=== PATIENT | female | born 1960 | race Two or more races ===

== ENCOUNTER 2023-06-14 18:53 | Inpatient (IN) | payer MEDICAID, OTHER ==
[~2023-06-14] VITALS: Ht 165.1 cm; Wt 102.0 kg
[2023-06-14 19:20] VITALS: PULSE 129; RESP 30; O2SAT 96
[2023-06-14 19:36] LABS: Basophils # (auto) 0 10 ^3/uL (0-0.2); Eosinophils # (auto) 0 10 ^3/uL (0-0.8); Hematocrit 35.5 % (36.0-46.0); Lymphocytes # (auto) 0.8 10 ^3/uL (0.4-5.4); Nucleated Red Blood Cells % 0.1 %
[2023-06-14 19:38] LABS: Basophils % (auto) 0.1 % (0.0-2.0); Eosinophils % (auto) 0.2 % (0.0-7.0); Hemoglobin 11.7 g/dL (12.2-16.2); Lymphocytes % (auto) 8.3 % (10.0-50.0); Mean Corpuscular Hemoglobin 28.9 pg (28.0-32.0); Mean Corpuscular Hgb Conc. 33.1 g/dL (32.0-36.0); Mean Corpuscular Volume 87.4 fL (80.0-100.0); Monocytes % (auto) 9.8 % (0.0-12.0); Neutrophils # (auto) 7.9 10 ^3/uL (1.6-8.6); Neutrophils % (auto) 81.6 % (37.0-80.0); Red Blood Cells 4.06 10^6/uL (4.0-5.20); Red Cell Distribution Width 13.8 % (11.8-14.3); White Blood Cell 9.7 10^3/uL (4.4-10.8)
[2023-06-14] MEDS ORDERED: DexAMETHasone SOD PHOS 10MG/1ML VIAL INJ IV ONE (19:45)
[2023-06-14] MEDS ORDERED: KETOROLAC TROMETH 30 MG/ML 1ML VIAL IV ONE (19:45)
[2023-06-14 19:54] LABS: INR 1.18 (0.9-1.15); Partial Thromboplastin Time 30.8 SEC (24.5-34.5)
[2023-06-14 20:20] LABS: Albumin 2.8 g/dL (3.4-5.0); BUN/Creatinine Ratio 16.7 (10.0-20.0); Calcium 9.3 mg/dL (8.5-10.1); Magnesium 2.3 mg/dL (1.6-2.6); Potassium 3.9 mmol/L (3.5-5.1)
[2023-06-14 20:23] LABS: Bilirubin, Total 0.7 mg/dL (0.2-1.0); Total Protein 7.8 g/dL (6.4-8.2)
[2023-06-14] MEDS ORDERED: ONDANSETRON HCL 4 MG/2 ML VIAL IV PRN (21:30)
[2023-06-14] MEDS ORDERED: IBUPROFEN 600 MG TAB PO PRN (21:30)
[2023-06-14] MEDS ORDERED: DOCUSATE SOD 100 MG CAP PO PRN (21:30)
[2023-06-14 21:45] VITALS: BP 130/77; PULSE 134; RESP 20; TEMP 100.1; O2SAT 95
[2023-06-14] MEDS: SODIUM CHLOR 0.9% PF (SALINE LOCK) 10ML VIAL/SYR IV SCH (21:48)
[2023-06-14] MEDS ORDERED: NITROGLYCERIN 0.4 MG SL TAB SL PRN (22:45)
[2023-06-14] MEDS ORDERED: MORPHINE SULFATE INJ 2 MG/ml SYRG IV PRN (22:45)
[2023-06-15] VITALS (9 sets, daily range): BP systolic 110–137; BP diastolic 70–83; PULSE 91–123; RESP 16–22; TEMP 97.2–98.4; O2SAT 95–100
[2023-06-15] MEDS: DOXYCYCLINE 100MG/250ML 250 ML IV SCH ×3 (00:20→23:29)
[2023-06-15 04:48] LABS: Basophils # (auto) 0 10 ^3/uL (0-0.2); Basophils % (auto) 0.1 % (0.0-2.0); Eosinophils # (auto) 0 10 ^3/uL (0-0.8); Lymphocytes # (auto) 0.3 10 ^3/uL (0.4-5.4)
[2023-06-15 04:50] LABS: Eosinophils % (auto) 0.1 % (0.0-7.0); Hematocrit 31.1 % (36.0-46.0); Hemoglobin 10.3 g/dL (12.2-16.2); Lymphocytes % (auto) 2.2 % (10.0-50.0); Mean Corpuscular Hemoglobin 29.2 pg (28.0-32.0); Mean Corpuscular Hgb Conc. 33.3 g/dL (32.0-36.0); Mean Corpuscular Volume 87.8 fL (80.0-100.0); Monocytes # (auto) 0.5 10 ^3/uL (0-1.3); Monocytes % (auto) 4.3 % (0.0-12.0); Neutrophils # (auto) 10.9 10 ^3/uL (1.6-8.6); Neutrophils % (auto) 93.3 % (37.0-80.0); Red Blood Cells 3.54 10^6/uL (4.0-5.20); Red Cell Distribution Width 13.9 % (11.8-14.3); White Blood Cell 11.7 10^3/uL (4.4-10.8)
[2023-06-15 04:56] LABS: BUN/Creatinine Ratio 20.5 (10.0-20.0); Potassium 3.6 mmol/L (3.5-5.1)
[2023-06-15 05:04] LABS: Bilirubin, Total 0.6 mg/dL (0.2-1.0); Total Protein 7.9 g/dL (6.4-8.2)
[2023-06-15 05:32] LABS: Urine Bacteria FEW /hpf (None Seen); Urine Blood Negative /uL (Negative); Urine Hyaline Cast MOD /lpf (0 - 2); Urine Mucus FEW (None Seen); Urine WBC 10 /hpf (0 - 5)
[2023-06-15 06:07] LABS: Albumin 2.3 g/dL (3.4-5.0)
[2023-06-15] MEDS: SODIUM CHLOR 0.9% PF (SALINE LOCK) 10ML VIAL/SYR IV SCH ×3 (06:18→21:24)
[2023-06-15] MEDS ORDERED: DEXTROSE (50%) 50ML SYRG IV PRN (06:45)
[2023-06-15] MEDS: InsuLIN REG 1unit/0.01ml Soln (100units/ml) SC SCH ×4 (06:55→21:24)
[2023-06-15] MEDS: ACCU-CHEK COMFORT CURVE STRIP VI SCH ×4 (06:55→21:25)
[2023-06-15] MEDS: HYDROcodone-ACET 5/325MG TAB PO PRN ×2 (09:58→15:05)
[2023-06-15] MEDS: DexAMETHasone SOD PHOS 10MG/1ML VIAL INJ IV SCH (11:04)
[2023-06-15 13:19] LABS: HDL Cholesterol 33 mg/dL (40-59); LDL Cholesterol 63 mg/dL (< 100); Triglycerides 67 mg/dL (< 150)
[2023-06-15 15:06] LABS: Cholesterol 131 mg/dL (< 200)
[2023-06-15] MEDS: IPRATROPIUM BROM 0.5 MG/2.5ML INH SOL NEB PRN (22:01)
[2023-06-15] MEDS: ALBUTEROL SULF 2.5 MG/0.5ML(0.5%) NEB SOLN NEB PRN (22:01)
[2023-06-16] VITALS (9 sets, daily range): BP systolic 115–137; BP diastolic 65–83; PULSE 68–118; RESP 14–19; TEMP 97–98.3; O2SAT 94–100
[2023-06-16] MEDS: HYDROcodone-ACET 5/325MG TAB PO PRN ×3 (00:08→23:39)
[2023-06-16] MEDS: SODIUM CHLOR 0.9% PF (SALINE LOCK) 10ML VIAL/SYR IV SCH ×3 (05:38→22:15)
[2023-06-16] MEDS: ACCU-CHEK COMFORT CURVE STRIP VI SCH ×4 (05:38→22:15)
[2023-06-16] MEDS: InsuLIN REG 1unit/0.01ml Soln (100units/ml) SC SCH ×4 (05:39→22:00)
[2023-06-16] MEDS: DexAMETHasone SOD PHOS 10MG/1ML VIAL INJ IV SCH (08:40)
[2023-06-16 09:24] LABS: Hepatitis B Surface Antibody Positive (Negative)
[2023-06-16 09:53] LABS: Hepatitis A Total Antibody Positive (Negative)
[2023-06-16 10:22] LABS: Hepatitis C Antibody Negative (Negative)
[2023-06-16] MEDS ORDERED: DAPA1TAB4 PO (10:28)
[2023-06-16] MEDS: DOXYCYCLINE 100MG/250ML 250 ML IV SCH ×2 (11:01→23:41)
[2023-06-16] MEDS: IPRATROPIUM BROM 0.5 MG/2.5ML INH SOL NEB PRN ×2 (14:36→20:00)
[2023-06-16] MEDS: ALBUTEROL SULF 2.5 MG/0.5ML(0.5%) NEB SOLN NEB PRN ×2 (14:36→20:00)
[2023-06-16] MEDS: methylPREDNISolone SOD SUCC 40 MG/ML VL IV SCH (22:16)
[2023-06-17 05:00] VITALS: BP 118/70; PULSE 85; RESP 16; TEMP 98; O2SAT 95
[2023-06-17] MEDS: InsuLIN REG 1unit/0.01ml Soln (100units/ml) SC SCH ×2 (06:33→11:30)
[2023-06-17] MEDS: ACCU-CHEK COMFORT CURVE STRIP VI SCH ×2 (06:33→11:30)
[2023-06-17] MEDS: SODIUM CHLOR 0.9% PF (SALINE LOCK) 10ML VIAL/SYR IV SCH ×2 (06:33→12:54)
[2023-06-17 08:00] VITALS: BP 133/79; PULSE 114; PULSE 95; RESP 20; TEMP 97.8; O2SAT 98
[2023-06-17 09:00] VITALS: BP 121/70; PULSE 108; RESP 20; TEMP 97.6; O2SAT 98
[2023-06-17] MEDS: methylPREDNISolone SOD SUCC 40 MG/ML VL IV SCH (10:11)
[2023-06-17] MEDS: DOXYCYCLINE 100MG/250ML 250 ML IV SCH (11:45)
[2023-06-17] MEDS ORDERED: DOXY1CAP57 PO (12:33)
[2023-06-17 12:58] VITALS: BP 133/79; PULSE 95; RESP 20; TEMP 97.8; O2SAT 94
[2023-06-17 14:38] VITALS: BP 121/70; PULSE 108; RESP 20; TEMP 97.6; O2SAT 98
== END 2023-06-17 15:30 | disposition home or self-care (01) | DRG 314 ==
LOC: ER 18:53 → TELE 22:38 → TELE-CENTR 06-15 14:00
PROVIDERS: ADMIT Family Medicine; ATTEND Family Medicine
DX: I31.39 Other pericardial effusion (noninflammatory) (principal); J18.9 Pneumonia, unspecified organism; J96.01 Acute respiratory failure with hypoxia; J98.11 Atelectasis; J90 Pleural effusion, not elsewhere classified; E11.9 Type 2 diabetes mellitus without complications; J45.909 Unspecified asthma, uncomplicated; K75.4 Autoimmune hepatitis; Z20.822 Contact with and (suspected) exposure to COVID-19; E66.01 Morbid (severe) obesity due to excess calories; R74.01 Elevation of levels of liver transaminase levels; R79.89 Other specified abnormal findings of blood chemistry; Z68.35 Body mass index [BMI] 35.0-35.9, adult; Z88.2 Allergy status to sulfonamides; Z91.041 Radiographic dye allergy status
CPT/HCPCS: 36415; 36600; 71250; 76705; 80053; 80061; 81001; 82805; 82962; 83036; 83516; 83605; 83735; 83880; 84443; 84484; 85025; 85610; 85730; 86225; 86235; 86704; 86706; 86708; 86803; 87040; 87081; 87340; 87426; 93005; 93306; 94640; G0378; J1100; J1885; J3490

== ENCOUNTER 2023-06-22 18:22 | Inpatient (IN) | payer OTHER ==
[~2023-06-22] VITALS: Ht 165.1 cm; Wt 94.0 kg
[~2023-06-22 18:22] MED LIST: DAPA1TAB4 PO; DOXY1CAP57 PO
[2023-06-22] MEDS ORDERED: ACETAMINOPHEN 325 MG TAB PO STA (19:04)
[2023-06-22 19:09] LABS: Basophils # (auto) 0 10 ^3/uL (0-0.2); Eosinophils # (auto) 0 10 ^3/uL (0-0.8); Eosinophils % (auto) 0.2 % (0.0-7.0); Monocytes # (auto) 0.6 10 ^3/uL (0-1.3)
[2023-06-22 19:11] LABS: Basophils % (auto) 0.2 % (0.0-2.0); Hematocrit 38.9 % (36.0-46.0); Hemoglobin 12.7 g/dL (12.2-16.2); Lymphocytes # (auto) 0.7 10 ^3/uL (0.4-5.4); Lymphocytes % (auto) 7.4 % (10.0-50.0); Mean Corpuscular Hemoglobin 28.4 pg (28.0-32.0); Mean Corpuscular Hgb Conc. 32.7 g/dL (32.0-36.0); Mean Corpuscular Volume 86.6 fL (80.0-100.0); Monocytes % (auto) 6.3 % (0.0-12.0); Neutrophils # (auto) 8.3 10 ^3/uL (1.6-8.6); Neutrophils % (auto) 85.9 % (37.0-80.0); Red Blood Cells 4.49 10^6/uL (4.0-5.20); Red Cell Distribution Width 13.9 % (11.8-14.3); White Blood Cell 9.7 10^3/uL (4.4-10.8)
[2023-06-22] MEDS ORDERED: ALBUTEROL SULF 2.5 MG/0.5ML(0.5%) NEB SOLN NEB ONE (19:15)
[2023-06-22] MEDS ORDERED: ONDANSETRON HCL 4 MG/2 ML VIAL IV ONE (19:15)
[2023-06-22] MEDS ORDERED: VANCOMYCIN PER PHARMACY 1,000 MG IV SCH (19:15)
[2023-06-22] MEDS ORDERED: SODIUM CHLORIDE 0.9% 2,950 ML IV ONE (19:15)
[2023-06-22] MEDS ORDERED: fentaNYL CITRATE 100 MCG/2 ML VL IV ONE (19:15)
[2023-06-22] MEDS ORDERED: IPRATROPIUM BROM 0.5 MG/2.5ML INH SOL NEB ONE (19:15)
[2023-06-22 19:24] LABS: INR 1.12 (0.9-1.15); Partial Thromboplastin Time 28.5 SEC (24.5-34.5); Prothrombin Time 11.7 sec (9.3-11.8)
[2023-06-22 19:32] LABS: Calcium 8.8 mg/dL (8.5-10.1)
[2023-06-22 19:36] LABS: BUN/Creatinine Ratio 19.2 (10.0-20.0); Bilirubin, Total 0.5 mg/dL (0.2-1.0); Total Protein 7.5 g/dL (6.4-8.2)
[2023-06-22] MEDS ORDERED: VANCOMYCIN 1GM/250ML 250 ML IV ONE (20:00)
[2023-06-22 20:05] VITALS: O2SAT 100
[2023-06-22 20:36] LABS: Blood Alcohol < 3.0 mg/dL (<10)
[2023-06-22] MEDS: DexAMETHasone INJECTION 10 MG in D5W 5% 50 ML IV SCH (21:00)
[2023-06-22 21:07] LABS: Urine Bacteria NONE SEEN /hpf (None Seen); Urine Blood Negative /uL (Negative); Urine Clarity Clear (Clear); Urine Color Yellow (Yellow); Urine Hyaline Cast FEW /lpf (0 - 2); Urine Protein, UAD Negative (Negative); Urine Specific Gravity 1.035 (1.001-1.035); Urine Urobilinogen Normal (Negative); Urine WBC 2 /hpf (0 - 5); Urine pH 5.5 (5.0-8.0)
[2023-06-22 21:32] LABS: Alcohol, Urine < 3.0 mg/dL (0-10); Amphetamine Screen, Urine NEGATIVE (NEGATIVE); Barbiturate Scree,Urine NEGATIVE (NEGATIVE); Benzodiazephine Screen, Urine NEGATIVE (NEGATIVE); Cannabinoid Screen, Urine NEGATIVE (NEGATIVE); Cocaine Screen, Urine NEGATIVE (NEGATIVE); Opiate Scree,Urine NEGATIVE (NEGATIVE); Phencyclidine Screen, Urine NEGATIVE (NEGATIVE)
[2023-06-22] MEDS ORDERED: PIPERACILLIN-TAZOB 3.375GM 100 ML IV SCH (22:00)
[2023-06-22] MEDS ORDERED: ONDANSETRON HCL 4 MG/2 ML VIAL IV PRN (22:45)
[2023-06-22] MEDS ORDERED: AZITHROMYCIN 500MG/ 250ML 250 ML IV ONE (22:45)
[2023-06-22] MEDS ORDERED: ALBUTEROL SULF 2.5 MG/0.5ML(0.5%) NEB SOLN NEB PRN (22:45)
[2023-06-22] MEDS ORDERED: ACETAMINOPHEN 325 MG TAB PO PRN (22:45)
[2023-06-22] MEDS ORDERED: NITROGLYCERIN 0.4 MG SL TAB SL PRN (22:45)
[2023-06-22 23:02] VITALS: BP 115/67; PULSE 117; RESP 22; TEMP 99.8; O2SAT 97
[2023-06-22 23:15] VITALS: PULSE 106; RESP 33; O2SAT 97
[2023-06-23] MEDS ORDERED: DexAMETHasone INJECTION 10 MG in SODIUM CHL 3% 500 ML IV SCH ×2
[2023-06-23] MEDS ORDERED: ACETAMINOPHEN 325 MG TAB PO ONE (01:15)
[2023-06-23] MEDS: DexAMETHasone INJECTION 10 MG in D5W 5% 50 ML IV SCH ×4 (03:00→20:47)
[2023-06-23 05:43] LABS: Basophils # (auto) 0 10 ^3/uL (0-0.2); Basophils % (auto) 0.2 % (0.0-2.0); Eosinophils # (auto) 0 10 ^3/uL (0-0.8); Eosinophils % (auto) 0.2 % (0.0-7.0); Hematocrit 33.8 % (36.0-46.0); Hemoglobin 10.9 g/dL (12.2-16.2); Lymphocytes # (auto) 1.4 10 ^3/uL (0.4-5.4); Lymphocytes % (auto) 14.7 % (10.0-50.0); Mean Corpuscular Hemoglobin 28.7 pg (28.0-32.0); Mean Corpuscular Hgb Conc. 32.4 g/dL (32.0-36.0); Mean Corpuscular Volume 88.6 fL (80.0-100.0); Monocytes % (auto) 10.3 % (0.0-12.0); Neutrophils # (auto) 7.3 10 ^3/uL (1.6-8.6); Neutrophils % (auto) 74.6 % (37.0-80.0); Nucleated Red Blood Cells % 0.2 %; Red Blood Cells 3.81 10^6/uL (4.0-5.20); Red Cell Distribution Width 14.6 % (11.8-14.3); White Blood Cell 9.8 10^3/uL (4.4-10.8)
[2023-06-23 06:00] LABS: Albumin 2.2 g/dL (3.4-5.0); Calcium 8.2 mg/dL (8.5-10.1); Potassium 3.4 mmol/L (3.5-5.1)
[2023-06-23 06:04] LABS: Bilirubin, Total 0.6 mg/dL (0.2-1.0); Total Protein 6.6 g/dL (6.4-8.2)
[2023-06-23 07:40] VITALS: PULSE 108; RESP 15; O2SAT 98
[2023-06-23] MEDS: MORPHINE SULFATE INJ 2 MG/ml SYRG IV PRN ×2 (08:34→14:48)
[2023-06-23] MEDS: ENOXAPARIN SOD 40 MG/0.4 ML SYRINGE SC SCH (09:38)
[2023-06-23] MEDS: hydrOXYchloroQUINE SULFATE 200 MG TAB PO SCH ×2 (09:38→23:06)
[2023-06-23] MEDS: AZITHROMYCIN 500MG/ 250ML 250 ML IV SCH (09:38)
[2023-06-23] MEDS: ASPirin 81 mg TAB PO SCH (09:38)
[2023-06-23] MEDS ORDERED: FUROSEMIDE 20 MG TAB PO SCH (11:45)
[2023-06-23] MEDS ORDERED: POTASSIUM CHL 20 Meq TABLET PO ONE (11:45)
[2023-06-23] MEDS ORDERED: PANTOPRAZOLE 40 MG/10 ML VIAL INJ IV ONE (15:45)
[2023-06-23] MEDS ORDERED: cefTRIAXone 1GM/50ML D5W 50 ML IV ONE (15:45)
[2023-06-23] MEDS: MAALOX PLUS or MAALOX 30 ML PO PRN (17:01)
[2023-06-23 18:00] VITALS: O2SAT 93
[2023-06-23 19:42] VITALS: PULSE 122; RESP 42; O2SAT 95
[2023-06-23 19:53] VITALS: PULSE 118; RESP 38; O2SAT 100
[2023-06-23] MEDS ORDERED: DexAMETHasone SOD PHOS 10MG/1ML VIAL INJ ONE (20:35)
[2023-06-23 23:53] VITALS: BP 112/79; PULSE 107; RESP 16; TEMP 98.7; O2SAT 92
[2023-06-23 23:55] VITALS: BP 112/79; PULSE 107; RESP 16; TEMP 98.7; O2SAT 95
[2023-06-23] MEDS ORDERED: HYDR200T36 PO (23:59)
[2023-06-23] MEDS ORDERED: ERGO1CAP12 PO (23:59)
[2023-06-23] MEDS ORDERED: GABA-1250 PO (23:59)
[2023-06-23] MEDS ORDERED: HYD25TP TOP (23:59)
[2023-06-23] MEDS ORDERED: ALBU0.084 NEB (23:59)
[2023-06-23] MEDS ORDERED: TIRZ5INJ SC (23:59)
[2023-06-24] VITALS (9 sets, daily range): BP systolic 103–127; BP diastolic 55–74; PULSE 90–111; RESP 14–20; TEMP 97.9–98.1; O2SAT 95–98
[2023-06-24] MEDS: DexAMETHasone INJECTION 10 MG in D5W 5% 50 ML IV SCH ×2 (03:12→12:12)
[2023-06-24] MEDS ORDERED: ADENOSINE 81 MG in GIVE UN-DILUTED 0 ML IV STA (08:19)
[2023-06-24] MEDS ORDERED: POTASSIUM CHL 20 Meq TABLET PO SCH (10:00)
[2023-06-24] MEDS ORDERED: PANTOPRAZOLE 40 MG/10 ML VIAL INJ IV SCH (10:00)
[2023-06-24 11:00] LABS: Potassium 4.3 mmol/L (3.5-5.1)
[2023-06-24 11:10] LABS: BUN/Creatinine Ratio 17.9 (10.0-20.0); Calcium 9.1 mg/dL (8.5-10.1)
[2023-06-24] MEDS: AZITHROMYCIN 500MG/ 250ML 250 ML IV SCH (12:11)
[2023-06-24] MEDS: ENOXAPARIN SOD 40 MG/0.4 ML SYRINGE SC SCH (12:12)
[2023-06-24] MEDS: ASPirin 81 mg TAB PO SCH (12:13)
[2023-06-24] MEDS: hydrOXYchloroQUINE SULFATE 200 MG TAB PO SCH ×2 (12:13→21:22)
[2023-06-24] MEDS: cefTRIAXone 1GM/50ML D5W 50 ML IV SCH (12:14)
[2023-06-24] MEDS: FUROSEMIDE 20 MG/2 ML VIAL IV SCH ×2 (12:14→19:24)
[2023-06-24 12:18] LABS: Eosinophils # (auto) 0 10 ^3/uL (0-0.8); Lymphocytes # (auto) 0.4 10 ^3/uL (0.4-5.4); Monocytes # (auto) 0.1 10 ^3/uL (0-1.3); White Blood Cell 8.7 10^3/uL (4.4-10.8)
[2023-06-24 12:23] LABS: Basophils # (auto) 0 10 ^3/uL (0-0.2); Basophils % (auto) 0.4 % (0.0-2.0); Hematocrit 34.3 % (36.0-46.0); Hemoglobin 11.1 g/dL (12.2-16.2); Lymphocytes % (auto) 4.4 % (10.0-50.0); Mean Corpuscular Hemoglobin 28.2 pg (28.0-32.0); Mean Corpuscular Hgb Conc. 32.3 g/dL (32.0-36.0); Mean Corpuscular Volume 87.3 fL (80.0-100.0); Neutrophils # (auto) 8.2 10 ^3/uL (1.6-8.6); Neutrophils % (auto) 94.2 % (37.0-80.0); Red Blood Cells 3.93 10^6/uL (4.0-5.20); Red Cell Distribution Width 14.7 % (11.8-14.3)
[2023-06-24] MEDS: MORPHINE SULFATE INJ 2 MG/ml SYRG IV PRN (15:56)
[2023-06-24] MEDS ORDERED: DEXTROSE (50%) 50ML SYRG IV PRN (18:00)
[2023-06-24 19:16] LABS: Basophils # (auto) 0 10 ^3/uL (0-0.2); Basophils % (auto) 0.2 % (0.0-2.0); Eosinophils # (auto) 0 10 ^3/uL (0-0.8); Hematocrit 33.1 % (36.0-46.0); Hemoglobin 10.8 g/dL (12.2-16.2); Lymphocytes # (auto) 0.3 10 ^3/uL (0.4-5.4); Mean Corpuscular Hemoglobin 28.8 pg (28.0-32.0); Mean Corpuscular Hgb Conc. 32.5 g/dL (32.0-36.0); Mean Corpuscular Volume 88.6 fL (80.0-100.0); Monocytes # (auto) 0.3 10 ^3/uL (0-1.3); Monocytes % (auto) 2.5 % (0.0-12.0); Neutrophils # (auto) 10.3 10 ^3/uL (1.6-8.6); Neutrophils % (auto) 94.3 % (37.0-80.0); Nucleated Red Blood Cells % 0.1 %; Red Blood Cells 3.74 10^6/uL (4.0-5.20); Red Cell Distribution Width 14.6 % (11.8-14.3)
[2023-06-24 19:38] LABS: BUN/Creatinine Ratio 23.8 (10.0-20.0); Calcium 9.1 mg/dL (8.5-10.1)
[2023-06-24] MEDS ORDERED: LORazepam 2MG/ML-1ML VIAL IV PRN (21:00)
[2023-06-24] MEDS: ACCU-CHEK COMFORT CURVE STRIP VI SCH (21:23)
[2023-06-24] MEDS: InsuLIN REG 1unit/0.01ml Soln (100units/ml) SC SCH (21:24)
[2023-06-25] VITALS (8 sets, daily range): BP systolic 100–119; BP diastolic 63–71; PULSE 83–105; RESP 14–20; TEMP 97.5–98.7; O2SAT 25–100
[2023-06-25] MEDS: ACCU-CHEK COMFORT CURVE STRIP VI SCH ×4 (06:22→23:21)
[2023-06-25] MEDS: FUROSEMIDE 20 MG/2 ML VIAL IV SCH ×2 (06:22→17:52)
[2023-06-25] MEDS: InsuLIN REG 1unit/0.01ml Soln (100units/ml) SC SCH ×4 (06:51→23:28)
[2023-06-25] MEDS ORDERED: DEXTROSE (50%) 50ML SYRG IV PRN (07:30)
[2023-06-25] MEDS ORDERED: ADENOSINE 83 MG in GIVE UN-DILUTED 0 ML IV ONE (07:45)
[2023-06-25] MEDS: AZITHROMYCIN 500MG/ 250ML 250 ML IV SCH (08:34)
[2023-06-25] MEDS: cefTRIAXone 1GM/50ML D5W 50 ML IV SCH (08:34)
[2023-06-25] MEDS: ENOXAPARIN SOD 40 MG/0.4 ML SYRINGE SC SCH (08:35)
[2023-06-25] MEDS: ASPirin 81 mg TAB PO SCH (08:35)
[2023-06-25] MEDS: hydrOXYchloroQUINE SULFATE 200 MG TAB PO SCH ×2 (08:35→22:23)
[2023-06-25] MEDS ORDERED: POTASSIUM CHL 10 Meq TABLET PO SCH (10:00)
[2023-06-25] MEDS: MORPHINE SULFATE INJ 2 MG/ml SYRG IV PRN (13:42)
[2023-06-25] MEDS: MAALOX PLUS or MAALOX 30 ML PO PRN ×2 (13:47→22:28)
[2023-06-25] MEDS: DOXYCYCLINE 100 MG TAB/CAP PO SCH (22:23)
[2023-06-26] MEDS: MORPHINE SULFATE INJ 2 MG/ml SYRG IV PRN (03:08)
[2023-06-26 04:50] VITALS: BP 101/63; PULSE 82; RESP 14; TEMP 97.6; O2SAT 93
[2023-06-26 06:20] LABS: Basophils # (auto) 0 10 ^3/uL (0-0.2); Eosinophils # (auto) 0 10 ^3/uL (0-0.8); Hemoglobin 11.2 g/dL (12.2-16.2); Lymphocytes # (auto) 1.5 10 ^3/uL (0.4-5.4); Neutrophils # (auto) 5.1 10 ^3/uL (1.6-8.6)
[2023-06-26 06:22] LABS: Basophils % (auto) 0.2 % (0.0-2.0); Eosinophils % (auto) 0.1 % (0.0-7.0); Hematocrit 33.8 % (36.0-46.0); Mean Corpuscular Hemoglobin 28.6 pg (28.0-32.0); Mean Corpuscular Volume 86.5 fL (80.0-100.0); Monocytes # (auto) 0.6 10 ^3/uL (0-1.3); Monocytes % (auto) 8.3 % (0.0-12.0); Neutrophils % (auto) 70.4 % (37.0-80.0); Nucleated Red Blood Cells % 0.1 %; Red Blood Cells 3.91 10^6/uL (4.0-5.20); Red Cell Distribution Width 14.3 % (11.8-14.3); White Blood Cell 7.2 10^3/uL (4.4-10.8)
[2023-06-26 06:27] LABS: Albumin 2.4 g/dL (3.4-5.0); Potassium 3.1 mmol/L (3.5-5.1)
[2023-06-26 06:30] LABS: BUN/Creatinine Ratio 27.6 (10.0-20.0); Bilirubin, Total 0.6 mg/dL (0.2-1.0); Calcium 9.1 mg/dL (8.5-10.1); Total Protein 7.4 g/dL (6.4-8.2)
[2023-06-26] MEDS: ACCU-CHEK COMFORT CURVE STRIP VI SCH ×2 (07:00→12:25)
[2023-06-26] MEDS: InsuLIN REG 1unit/0.01ml Soln (100units/ml) SC SCH ×2 (07:01→12:00)
[2023-06-26 08:00] VITALS: PULSE 75
[2023-06-26 09:00] VITALS: BP 106/67; PULSE 80; RESP 18; TEMP 97.7; O2SAT 98
[2023-06-26] MEDS ORDERED: ASPirin 81 mg TAB PO SCH (10:00)
[2023-06-26] MEDS ORDERED: POTASSIUM CHL 20 Meq TABLET PO SCH (10:00)
[2023-06-26] MEDS ORDERED: POTASSIUM CHL 10 Meq TABLET PO SCH (10:00)
[2023-06-26] MEDS: DOXYCYCLINE 100 MG TAB/CAP PO SCH (12:23)
[2023-06-26] MEDS: ENOXAPARIN SOD 40 MG/0.4 ML SYRINGE SC SCH (12:23)
[2023-06-26] MEDS: hydrOXYchloroQUINE SULFATE 200 MG TAB PO SCH (12:24)
[2023-06-26] MEDS: cefTRIAXone 1GM/50ML D5W 50 ML IV SCH (12:25)
[2023-06-26] MEDS: MAALOX PLUS or MAALOX 30 ML PO PRN (12:29)
[2023-06-26 13:00] VITALS: BP 110/62; PULSE 90; RESP 20; TEMP 97.8; O2SAT 99
[2023-06-26 17:00] VITALS: BP 106/66; PULSE 83; RESP 18; TEMP 98.5; O2SAT 96
== END 2023-06-26 16:00 | disposition home or self-care (01) | DRG 177 ==
LOC: ER 18:22 → TELE 22:44 → TELE-WESTW 06-23 22:15
PROVIDERS: ADMIT Internal Medicine; ATTEND Internal Medicine
DX: J15.6 Pneumonia due to other Gram-negative bacteria (principal); J96.01 Acute respiratory failure with hypoxia; I31.39 Other pericardial effusion (noninflammatory); J90 Pleural effusion, not elsewhere classified; J44.1 Chronic obstructive pulmonary disease with (acute) exacerbation; J45.901 Unspecified asthma with (acute) exacerbation; J44.0 Chronic obstructive pulmonary disease with (acute) lower respiratory infection; E44.0 Moderate protein-calorie malnutrition; R74.8 Abnormal levels of other serum enzymes; E66.01 Morbid (severe) obesity due to excess calories; E87.6 Hypokalemia; E78.5 Hyperlipidemia, unspecified; I11.0 Hypertensive heart disease with heart failure; E11.41 Type 2 diabetes mellitus with diabetic mononeuropathy; I25.10 Atherosclerotic heart disease of native coronary artery without angina pectoris; I50.9 Heart failure, unspecified; E11.9 Type 2 diabetes mellitus without complications; K29.70 Gastritis, unspecified, without bleeding; M32.9 Systemic lupus erythematosus, unspecified; Z68.34 Body mass index [BMI] 34.0-34.9, adult; Z88.2 Allergy status to sulfonamides; Z88.8 Allergy status to other drugs, medicaments and biological substances; Z82.49 Family history of ischemic heart disease and other diseases of the circulatory system; Z83.3 Family history of diabetes mellitus; Z98.84 Bariatric surgery status
CPT/HCPCS: 36415; 70551; 71045; 71250; 74176; 78452; 78582; 80048; 80053; 80307; 80320; 81001; 82553; 82962; 83605; 83735; 83880; 84443; 84484; 85025; 85379; 85610; 85730; 86850; 86900; 86901; 87040; 87081; 87086; 93005; 93017; 93306; 93970; 94640; 96365; C9113; G0378; J0153; J0696; J1100; J1815; J2543; J7060